=== PATIENT | male | born 1980 | race Caucasian/White ===

== ENCOUNTER 2016-09-19 20:23 | Emergency (ER) | payer OTHER ==
[~2016-09-19] VITALS: Ht 180.3 cm; Wt 82.7 kg
[2016-09-19 20:32] VITALS: BP 149/111; PULSE 117; RESP 20; O2SAT 98
--- NOTE | 2016-09-19 21:20 | DRSVH ---
PROCEDURE: X-RAY LEFT FOOT COMPLETE, MINIMUM THREE VIEWS ([id number]) INDICATIONS: inj TECHNIQUE: 3 views of the foot were acquired. COMPARISON: None. FINDINGS: Bones: No fractures or dislocations. No suspicious bony lesions. Soft tissues: No tibiotalar joint effusion. Achilles tendon appears normal. IMPRESSION: No acute bony abnormality is found in the left foot. Dictated by: Matthias Ayala M.D. on 09/19/2016 at 21:17 Approved by: Matthias Ayala M.D. on 09/19/2016 at 21:18
--- NOTE | 2016-09-19 21:21 | DRSVH ---
PROCEDURE: X-RAY LEFT ANKLE, MINIMUM THREE VIEWS ([id number]) INDICATIONS: inj TECHNIQUE: 3 views of the ankle were acquired. COMPARISON: None. FINDINGS: Bones: No fractures or dislocations. Ankle mortise is normally aligned. No suspicious bony lesions . Soft tissues: No tibiotalar joint effusion. Achilles tendon appears normal. IMPRESSION: No acute bony abnormality. Soft tissue swelling is present around the ankle most prominen t laterally. Dictated by: Matthias Ayala M.D. on 09/19/2016 at 21:18 Approved by: Matthias Ayala M.D. on 09/19/2016 at 21:19
--- NOTE | 2016-09-19 21:36 | ED.REPORT ---
HPI-Extremity Problem Lower Date of Service Sep 19, 2016 ED Provider: Wilfrid Gunter MD Pt is a healthy 35 y/o male presenting to the ED c/o left ankle injury which occurred earlier today. The patient was chasing his dog and twisted his left ankle. Throughout the day it has become swollen and bruised. He has been able to walk on the ankle but with significant pain. He is not anticoagulated. Nursing Notes Stated Complaint: RIGHT ANKLE PAIN Chief Complaint: Extremity Trauma Nursing Notes Reviewed: Yes Allergies: Coded Allergies: No Known Allergies (Unverified , 09/19/16) General Time Seen by MD: 21:34 Chief Complaint Ankle injury left Hx Obtained From: Patient Arrived By: Walk-in Onset Occurred: 5 - 8 hours ago Symptom Duration: Since onset Caused by: Accidental Location: : Ankle left Quality: Painful Severity: Current: Moderate Severity: Maximum: Moderate Recent Healthcare: No recent doctor visit, No recent hospitalization Similar Sx Previous: No Past Medical History Past Medical History Denies Past Surgical History None reported Smoking History Unknown if Ever Smoker Ambulatory Status Independent Review of Systems Musculoskeletal: Reports: Extremity pain, Extremity swelling Complete sys rev & neg: except as marked. Hematologic: Reports Bruising Physical Exam Initial Vital Signs Vital Signs (First) Date Time Temp Pulse Resp B/P Pulse Ox O2 Delivery O2 Flow Rate FiO2 09/19/16 20:32 36.8 117 20 149/111 98 Room Air Initial VS: Reviewed, Vital signs abnormal Head / Eyes: Atraumatic, Normocephalic, PERRL ENT: Mucous membranes moist, Conjunctiva normal, No scleral icterus Neck: Supple, Full range of motion Respiratory: No respiratory distress Cardiovascular: Intact distal pulses Abdomen / GI: Soft, No distention Upper Extremities: Vascular intact, Neuro intact, No swelling Skin: Warm, Dry, No cyanosis Neurologic: Alert, Oriented, Nonfocal Psychiatric: Mood/affect normal, Behavior normal, Normal thought content Lower Extremity / Pelvis / MS: No deformity, Neurologic intact, Vascular intact Ankle / Foot: No deformity, Neurologic intact, Vascular intact Ecchymosis about left lateral ankle, lateral malleolus, lateral foot. Significant swelling to lateral malleolus to the lateral foot. Diffuse lateral foot tenderness General/Constitutional: Awake, Alert, No acute distress, Cooperative, Not toxic appearing Interpretation & Diagnostics Interpretation & Diagnostics: Pt rechecked. Informed pt of plan for treatment. Pt understands and agrees with plan for treatment. F/U instructions and RTER warnings given. All questions addressed. X-Ray Interpretation Xray Interpretation: IMPRESSION: No acute bony abnormality. Soft tissue swelling is present around the ankle most prominent laterally. Dictated by: Matthias Ayala M.D. on 09/19/2016 at 21:18 Approved by: Matthias Ayala M.D. on 09/19/2016 at 21:19 X-Ray Ordered: Ankle left Interpretation / Wet Read by: Interpret - Radiologist Xray Interpretation: IMPRESSION: No acute bony abnormality is found in the left foot. Dictated by: Matthias Ayala M.D. on 09/19/2016 at 21:17 Approved by: Matthias Ayala M.D. on 09/19/2016 at 21:18 X-Ray Ordered: Foot left Interpretation / Wet Read by: Interpret - Radiologist Re-Eval/Medical Decision Med Decision/Clinical Course Pt is a healthy 35 y/o male presenting to the ED c/o left ankle injury which occurred earlier today. The patient was chasing his dog and twisted his left ankle. Throughout the day it has become swollen and bruised. He has been able to walk on the ankle but with significant pain. He is not anticoagulated. Here in the emergency department the patient is afebrile stable vital signs and examination as above. Plain films of the ankle demonstrate no acute fracture. He is neurovascularly intact. He has no significant ligamentous instability. Has quite a bit of ecchymosis and suspect that he has a significant ankle sprain. He is provided with crutches as well as a walking boot. She was treated with Toradol and an ice pack was applied. He is advised to avoid weightbearing on the extremity and do gentle range of motion exercises at night. He will follow up closely with his primary care physician. He will take ibuprofen for pain though given the extent of the sprain of also prescribed a limited supply of [place]. Prior to discharge follow-up and return precautions were reviewed in detail with the patient who verbalized understanding and agreement with the plan. The patient was discharged in stable condition. Re-Evaluation/Progress : Time of Eval: 21:51 Re-Evaluation/Progress Note: Pt rechecked. Informed pt of plan for treatment. Pt understands and agrees with plan for treatment. F/U instructions and RTER warnings given. All questions addressed. Counseled Regarding: Diagnosis, Need for follow-up, When/why to return to ED Discharge & Departure Impression: Primary Impression: Left ankle sprain Encounter type: initial encounter Involved ligament of ankle: unspecified ligament Qualified Code: S93.402A - Sprain of unspecified ligament of left ankle, initial encounter Additional Impressions: Traumatic ecchymosis of left ankle Encounter type: initial encounter Qualified Code: S90.02XA - Contusion of left ankle, initial encounter Left ankle pain Chronicity: acute Qualified Code: M25.572 - Pain in left ankle and joints of left foot Disposition: Home Discharge Condition All VS Reviewed: Yes Condition: Stable Patient Instructions: Ankle Sprain (GEN) Additional Instructions: Thank you for seeking care at the emergency room. I suspect you have a significant ankle sprain. Our primary goal today in the ED was to evaluate you for any life-threatening conditions. Your evaluation was reassuring. The x-rays of your foot and ankle were negative for fracture. Take Ibuprofen 600 mg every 6 hours. Take this with food and water. Take 1 tab of Vicodin every 6 hours as needed for severe breakthrough pain. See the instructions below. Perform range of motion exercises at night. Write the alphabet with your big toe. Wear the boot as needed for activities. Keep your leg elevated when sitting or laying. You should follow-up with your primary doctor in the next week if pain does not decrease. You may need repeat imaging to ensure there is no occult fracture. Thank you for letting us partake in your care today. You have been prescribed a narcotic for pain relief. These drugs are usually combined with acetaminophen (Tylenol#3, Percocet, Darvocet, Anexsia, Vicodin) or aspirin (Empirin#3, Percodan, Synalogs-DC) for increased effect. Narcotics act on the central nervous system to reduce pain; they also impair mental alertness and physical abilities. We advise you not to drink alcohol, drive a car, or operate dangerous equipment when you are taking these drugs. You can lessen stomach irritation from your medicine by taking it with meals or a full glass of water. Common side effects of narcotics are: Nausea and vomiting, heartburn, constipation, dizziness, sleepiness, and mood changes. If you have bothersome side effects or symptoms of an allergic reaction (itching, hives, rash), stop taking your medicine and call your doctor or the emergency room right away. Please keep your narcotic medicine well out of the reach of children. Referrals: [facility] Scribe Attestation Portions of this note were transcribed by Sky Alvarez. I, Dr. Gunter, personally performed the history, physical exam and medical decision-making; I reviewed and confirmed the accuracy of the information in the transcribed note. Signed by Josseline Siddiqui, 09/19/16 - [id number] Wilfrid Gunter MD Sep 19, 2016 21:36 SKY ALVAREZ Sep 19, 2016 21:59
[2016-09-19] MEDS ORDERED: HYDROcodone-APAP 5-325 mg Tablet PO ONE (22:00)
[2016-09-19] MEDS ORDERED: _HYDROcodone/APAP 5-325 mg Tablet PO PRN (22:05)
== END 2016-09-19 22:33 | disposition home or self-care (01) ==
LOC: SED 20:23
DX: S93.402A Sprain of unspecified ligament of left ankle, initial encounter (principal); X50.1XXA Overexertion from prolonged static or awkward postures, initial encounter; Y92.018 Other place in single-family (private) house as the place of occurrence of the external cause; Y93.K9 Activity, other involving animal care; Y99.8 Other external cause status; M25.572 Pain in left ankle and joints of left foot
CPT/HCPCS: 73610; 73630; 96372; 99284; J1885